=== PATIENT | male | born 1945 | race Caucasian/White ===

== ENCOUNTER 2018-01-21 18:02 | Inpatient (IN) | payer OTHER ==
[~2018-01-21] VITALS: Ht 182.9 cm; Wt 98.9 kg
[2018-01-21 18:06] VITALS: Ht 182.9 cm; Wt 98.9 kg
[2018-01-21 18:50] LABS: BASOPHIL % 0.3 % (0-2); PLATELET COUNT 247 x10^3mcL (130-400); RED CELL DISTRIBUTION WIDTH 14.4 % (11.5-14.5)
[2018-01-21 18:54] LABS: CALCIUM 8.8 mg/dL (8.5-10.1); CARBON DIOXIDE 19.9 mmol/L (21-32); CHLORIDE SERUM 103 mmol/L (98-107); CREATININE SERUM 1.6 mg/dL (0.7-1.3); GLUCOSE SERUM 278 mg/dL (74-106); POTASSIUM SERUM 3.6 mmol/L (3.5-5.1); SODIUM SERUM 131 mmol/L (136-145)
[2018-01-21 19:00] LABS: ALBUMIN 3.4 g/dL (3.4-5.0); ALKALINE PHOSPHATASE 72 U/L (46-116); ALT/SGPT 73 U/L (16-63); AST/SGOT 65 U/L (15-37); BILIRUBIN TOTAL 0.39 mg/dL (0.20-1.00); TOTAL PROTEIN, SERUM 7.4 g/dL (6.4-8.2)
[2018-01-21 21:55] VITALS: BP 168/95
[2018-01-21] MEDS ORDERED: METFORMIN HCL1000 MG PO (22:17)
[2018-01-21] MEDS ORDERED: FENOFIBRATE160 M1 PO (22:17)
[2018-01-21] MEDS ORDERED: CARVEDILOL25 M1 PO (22:18)
[2018-01-21] MEDS ORDERED: GLUCOTROL10 MG PO (22:18)
[2018-01-21] MEDS ORDERED: HCTZ/LISINOPRIL1 TA1 PO (22:18)
[2018-01-21] MEDS ORDERED: ZOCOR40 MG PO (22:19)
[2018-01-21] MEDS ORDERED: ACT30 PO (22:19)
[2018-01-21 23:00] VITALS: BP 142/82
[2018-01-22 05:21] VITALS: BP 128/70
[2018-01-22 07:19] LABS: BASOPHIL % 0.6 % (0-2); PLATELET COUNT 213 x10^3mcL (130-400); RED CELL DISTRIBUTION WIDTH 14.3 % (11.5-14.5)
[2018-01-22 07:29] LABS: ALBUMIN 3.1 g/dL (3.4-5.0); ALKALINE PHOSPHATASE 65 U/L (46-116); ALT/SGPT 62 U/L (16-63); AST/SGOT 50 U/L (15-37); BILIRUBIN TOTAL 0.41 mg/dL (0.20-1.00); CALCIUM 8.4 mg/dL (8.5-10.1); CARBON DIOXIDE 22.2 mmol/L (21-32); CHLORIDE SERUM 106 mmol/L (98-107); CREATININE SERUM 1.5 mg/dL (0.7-1.3); GLUCOSE SERUM 199 mg/dL (74-106); MAGNESIUM 1.8 mg/dL (1.8-2.4); POTASSIUM SERUM 3.9 mmol/L (3.5-5.1); SODIUM SERUM 140 mmol/L (136-145); TOTAL PROTEIN, SERUM 6.9 g/dL (6.4-8.2)
[2018-01-22 09:34] VITALS: BP 173/75
[2018-01-22 12:53] VITALS: BP 150/58
[2018-01-22 17:50] VITALS: BP 123/61
[2018-01-22 20:48] VITALS: BP 143/69
[2018-01-23 05:25] VITALS: BP 128/59
[2018-01-23 06:12] LABS: CALCIUM 8.4 mg/dL (8.5-10.1); CARBON DIOXIDE 22.7 mmol/L (21-32); CHLORIDE SERUM 106 mmol/L (98-107); CREATININE SERUM 1.3 mg/dL (0.7-1.3); GLUCOSE SERUM 138 mg/dL (74-106); SODIUM SERUM 138 mmol/L (136-145)
[2018-01-23 08:20] VITALS: BP 140/68
[2018-01-23 12:11] VITALS: BP 135/66
[2018-01-23] MEDS ORDERED: METOPROLOL TART25 M1 PO (16:24)
[2018-01-23] MEDS ORDERED: ELIQUIS5 MG PO (16:24)
[2018-01-23] MEDS ORDERED: GLUCOTROL5 MG PO (16:25)
[2018-01-23 16:46] VITALS: BP 136/66
[2018-01-23 16:58] VITALS: BP 136/66
== END 2018-01-23 17:57 | disposition home or self-care (01) | DRG 309 ==
LOC: ED 18:02 → DU 21:15
PROVIDERS: Emergency Medicine; Internal Medicine; Internal Medicine Pulmonary Disease
DX: I48.0 Paroxysmal atrial fibrillation (principal); N17.9 Acute kidney failure, unspecified; I12.9 Hypertensive chronic kidney disease with stage 1 through stage 4 chronic kidney disease, or unspecified chronic kidney disease; N18.2 Chronic kidney disease, stage 2 (mild); E11.22 Type 2 diabetes mellitus with diabetic chronic kidney disease; I25.10 Atherosclerotic heart disease of native coronary artery without angina pectoris; E78.5 Hyperlipidemia, unspecified; Z68.29 Body mass index [BMI] 29.0-29.9, adult; Z95.5 Presence of coronary angioplasty implant and graft; Z79.84 Long term (current) use of oral hypoglycemic drugs; Z91.128 Patient's intentional underdosing of medication regimen for other reason
CPT/HCPCS: 82962; 83880; A9500; J1650; J2785; J3490; Q0092